=== PATIENT | female | born 1980 | race American Indian/Alaskan Native ===

== ENCOUNTER 2017-05-09 05:55 | Day surgery (SDC) | payer BC ==
[2017-05-09] MEDS ORDERED: NACL BACTERIOSTATIC INFILTRATI ONE (06:41)
[2017-05-09] MEDS ORDERED: ANCEF/STERILE WATER 2 GM/20 ML IV NR (07:00)
[2017-05-09 07:10] LABS: Hematocrit 36.4 % (30.3-42.9); Hemoglobin 12.3 gm/dl (10.1-14.3)
[2017-05-09] MEDS ORDERED: SUBLIMAZE ONE (07:22)
[2017-05-09] MEDS ORDERED: DIPRIVAN 10 MG/ML IV ONE (07:22)
[2017-05-09] MEDS ORDERED: XYLOCAINE MPF 2% ONE (07:22)
[2017-05-09] MEDS ORDERED: NACL 0.9% 1000 ML 1,000 ML IV SCH (07:30)
[2017-05-09] MEDS ORDERED: VERSED IV NR (07:30)
[2017-05-09] MEDS ORDERED: DILAUDID IV PRN (07:31)
--- NOTE | 2017-05-09 07:34 | Anesthesia Consultation ---
Anesthesia Consult and Med Hx Date of service: 05/09/17 - Airway Anesthetic Teeth Evaluation: Good ROM Head & Neck: Adequate Mental/Hyoid Distance: Adequate Mallampati Class: Class II Intubation Access Assessment: Probably Good - Pulmonary Exam CTA: Yes - Cardiac Exam Cardiac Exam: RRR - Pre-Operative Health Status ASA Pre-Surgery Classification: ASA2 Proposed Anesthetic Plan: General - Pulmonary Hx Smoking: No Hx Sleep Apnea: No (DILAN PRE SCREEN LOW RISK) - Cardiovascular System Hx Hypertension: Yes (X 10 YRS) - Other Systems Hx Cancer: No Hx Obesity: Yes
--- NOTE | 2017-05-09 07:34 | Anesthesia Day of Surgery ---
Anesthesia Day of Surgery - Day of Surgery Patient Examined: Yes Patient H&P Reviewed: Yes Patient is NPO: Yes Beta Blockers: Yes
[2017-05-09] MEDS ORDERED: XYLOCAINE 1% 20 mL ONE (07:48)
[2017-05-09] MEDS ORDERED: MARCAINE 0.25% INFILTRATI ONE ×2 (07:48→08:16)
[2017-05-09] MEDS ORDERED: PEPCID PO NR (08:00)
[2017-05-09] MEDS ORDERED: DECADRON ONE (08:10)
[2017-05-09] MEDS ORDERED: ZOFRAN ONE (08:10)
[2017-05-09] MEDS ORDERED: NACL 0.9% IR ONE (08:16)
[2017-05-09] MEDS ORDERED: XYLOCAINE 1% 20 mL INFILTRATI ONE (08:16)
--- NOTE | 2017-05-09 08:57 | Short Stay Summary ---
Short Stay Documentation Date of service: 05/09/17 - History H&P: obtained from office - Allergies and Medications Current Medications: Allergies No Known Allergies Allergy (Verified 05/04/17 15:33) Home Medications Medication Instructions Recorded Confirmed Last Taken Type Aspirin [Aspirin TAB] 325 mg PO PRN PRN 05/04/17 05/09/17 05/02/17 09:00 History Ibuprofen [Motrin] 800 mg PO Q8HR PRN 05/04/17 05/09/17 05/04/17 09:00 History Labetalol [Normodyne] 200 mg PO TID 05/04/17 05/09/17 05/09/17 05:00 History NIFEdipine XL [Procardia Xl] 30 mg PO Q12HR 05/04/17 05/09/17 05/08/17 18:00 History HYDROcodone/APAP 5-325 [Howell 1 each PO Q6HR PRN #30 tablet 05/09/17 Unknown Rx 5/325] Active Medications Cefazolin Sodium (Ancef/Sterile Water 2 Gm/20 Ml) 2 gm IV PREOP NR Stop: 05/09/17 23:59 Famotidine (Pepcid) 20 mg PO PREOP NR Stop: 05/09/17 15:00 Hydromorphone HCl (Dilaudid) 0.5 mg IV Q10MIN PRN PRN Reason: Pain , Severe (7-10) Stop: 05/09/17 15:00 Sodium Chloride (Nacl 0.9% 1000 Ml) 1,000 mls @ 75 mls/hr IV DIRECT OMAR Midazolam HCl (Versed) 2 mg IV PREOP NR Stop: 05/09/17 23:59 Ondansetron HCl (Zofran) 4 mg IV ONCE PRN PRN Reason: Nausea And Vomiting Stop: 05/09/17 10:01 Oxycodone/Acetaminophen (Percocet 5/325) 1 tab PO ONCE PRN PRN Reason: Pain, Moderate (4-6) Stop: 05/09/17 10:01 - Brief post op/procedure progress note Date of procedure: 05/09/17 Pre-op diagnosis: Right breast mass of the upper outer quadrant Post-op diagnosis: same Procedure: Right breast mass excisional biopsy Findings: Known discordant right breast mass of the upper outer quadrant at the 10:00 position Surgeon: HETAH BOCANEGRA Estimated blood loss: minimal Pathology: list (right breast mass) Specimen disposition: to lab Condition: stable - Disposition Condition at discharge: Good Disposition: DC-01 TO HOME OR SELFCARE Short Stay Discharge Plan Activity: other (no heavy lifting) Diet: regular Wound: other (keep incision clean and dry; may shower in 30 hours; no baths, pools or lakes; do not rub or scrub incision) Follow up with: SACHA CHENG MD [Primary Care Provider] - 7 Days HEATH BOCANEGRA MD [Staff Physician] - 7 Days Prescriptions: HYDROcodone/APAP 5-325 [Howell 5/325] 1 each PO Q6HR PRN #30 tablet PRN Reason: Pain
--- NOTE | 2017-05-09 09:02 | Operative Report ---
Operative Report Operative Report: Data service: 05/09/2017 Preoperative diagnosis: Right breast mass of the upper outer quadrant Post operative diagnosis: Same Procedure: Right breast mass excisional biopsy Surgeon: Dona Wong M.D. Anesthesia: Gen. Findings: Right breast mass at the 10 o'clock position Complications: None Estimated blood loss: Minimal Drains: None Disposition: PACU in good condition Indications for operative procedure: This is a 37-year-old premenopausal -[place] lady with known right breast mass at the 10 o'clock position. Prior right breast biopsy performed with findings of pathology discordant and recommendations for excisional biopsy for definitive diagnosis. Patient wished to proceed with the above procedure. Procedure in detail: The patient was taken to the operating room and was laid supine. General anesthesia was administered. The right breast was prepped and draped in the normal sterile operative fashion. Palpable right breast masses noted at the 10 o'clock position about 4-5 cm from the nipple. Timeout was performed. Skin incision was made of the lateral aspect of the breast at palpable breast mass with a 15 blade knife with dissection taken down to the subcutaneous tissues. The breast mass was encountered and appropriately dissected free with the aid of the Bovie cautery. Hemostasis was obtained with the aid of the Bovie cautery. Breast cavity was appropriately anesthetized with 1% lidocaine and quarter percent Marcaine. Hemostasis was noted. The subcutaneous tissues were approximated and closed using interrupted 3-0 Vicryl and the skin closed using a running 4-0 Monocryl and skin affix. She tolerated surgery very well and was awakened from anesthesia without any complications and transported to PACU in good condition.
--- NOTE | 2017-05-09 09:54 | Post Anesthesia Evaluation ---
- Post Anesthesia Evaluation Patient Participated: Yes Airway Patent: Yes Stable Respiratory Function: Yes Nausea/Vomiting: No Temp > 96.8F: Yes Pain Manageable: Yes Adequeate Hydration: Yes Anesthesia Complications: No Block Receding Appropriately: Not Applicable Patient on Ventilator: No
[2017-05-09] MEDS ORDERED: ZOFRAN IV PRN (10:00)
[2017-05-09] MEDS ORDERED: PERCOCET 5/325 PO PRN (10:00)
[2017-05-09 10:26] VITALS: BP 139/88
== END 2017-05-09 10:25 | disposition home or self-care (01) ==
LOC: OR 05:55
PROVIDERS: ATTEND Surgery
DX: D24.1 Benign neoplasm of right breast (principal); I10 Essential (primary) hypertension; D64.9 Anemia, unspecified; E66.9 Obesity, unspecified; Z68.30 Body mass index [BMI] 30.0-30.9, adult; Z79.82 Long term (current) use of aspirin; Z79.899 Other long term (current) drug therapy; Z98.890 Other specified postprocedural states; Z80.0 Family history of malignant neoplasm of digestive organs
CPT/HCPCS: 19120; 36415; 85014; 85018; 88305; J0690; J1100; J1170; J2250; J2405; J2704; J3010; J7030; 88307